=== PATIENT | female | born 1935 | race Two or more races ===

== ENCOUNTER 2016-05-28 20:41 | Inpatient (IN) | payer MEDICARE ==
[~2016-05-28] VITALS: Ht 162.6 cm; Wt 74.4 kg
--- NOTE | 2016-05-28 20:44 | NUR ---
Code Stroke called Addendum: 05/28/16 at [address] Pillai, do not call [facility] due to patient last known well being 1100 this am.
--- NOTE | 2016-05-28 20:44 | NUR ---
PT BIBRA 99 FOR STROKE, LAST KNOWN WELL AT 1100 PER SON, BS ON THE FIELD [address] NOTED. NOTED LEFT FACIAL DROOPING. PT AOX2 WITH SLURRED SPEECH NOTED. PT RR EVEN AND UNLABORED. NO SOB NOTED. NAD NOTED. NO NVD AT THIS TIME. PT NOT DIAPHORETIC. PT GOWNED AND PLACED ON MONITOR WAITING FOR MD CASSIDY.
--- NOTE | 2016-05-28 20:45 | NUR ---
IV STARTED ON RIGHT HAND 20, BLOOD DRAWN AND SENT TO LAB. PER RA PLACED LEFT HAND 20G, INTACT AND PATENT.
--- NOTE | 2016-05-28 20:47 | NUR ---
PT TO CT.
[2016-05-28 20:52] LABS: BASOPHILS % (AUTO) 0.3 % (0.0-2.0); EOSINOPHILS # (AUTO) 0.1 /CMM (0.0-0.7); EOSINOPHILS % (AUTO) 0.8 % (0.0-6.0); HEMATOCRIT 47 % (33-45); HEMOGLOBIN 15.7 g/dL (11.5-14.8); LYMPHOCYTES # (AUTO) 0.7 /CMM (0.8-4.8); MEAN CORPUSCULAR HEMOGLOBIN 32 PG (26.0-33.0); MEAN CORPUSCULAR HGB CONC 33 g/dl (31.0-36.0); MEAN CORPUSCULAR VOLUME 97 fL (82-100); MONOCYTES # (AUTO) 0.5 /CMM (0.1-1.30); MONOCYTES % (AUTO) 4.8 % (2.0-12.0); NEUTROPHILS # (AUTO) 8.8 /CMM (1.8-8.9); NEUTROPHILS % (AUTO) 87.1 % (43.0-81.0); PLATELET COUNT (AUTO) 232 /CMM (150-450); RDW COEFFICIENT OF VARIATION 13.7 (11.5-15.0); RED BLOOD CELL COUNT(AUTO) 4.84 MIL/uL (4.0-5.2); WHITE BLOOD COUNT (AUTO) 10.1 K/uL (4.3-11.0)
--- NOTE | 2016-05-28 21:02 | NUR ---
PT RETURNED FROM CT.
[2016-05-28 21:03] LABS: CALCIUM, SERUM 9.5 mg/dL (8.5-10.1); CARBON DIOXIDE 28 mmol/L (21-32); CHLORIDE 104 mmol/L (98-107); CREATININE 1.1 mg/dL (0.6-1.3); GLUCOSE 183 mg/dL (74-106); POTASSIUM 3.6 mmol/L (3.5-5.1); SODIUM SERUM 140 mmol/L (136-145); UREA NITROGEN, BLOOD 17 mg/dL (7-18)
[2016-05-28 21:08] LABS: ALANINE AMINOTRANSFERASE 12 U/L (12-78); ALBUMIN 3.9 g/dL (3.4-5.0); ALKALINE PHOSPHATASE 83 U/L (46-116); ASPARTATE AMINOTRANSFERASE 23 U/L (15-37); BILIRUBIN,DIRECT 0.1 mg/dL (0.0-0.2); BILIRUBIN,TOTAL 0.6 mg/dL (0.2-1.0); TOTAL PROTEIN, SERUM 8.2 g/dL (6.4-8.2)
[2016-05-28 21:10] LABS: INR 0.97 (0.87-1.13); PROTHROMBIN TIME 10.2 SECS (9.5-12.7)
[2016-05-28 21:11] LABS: TROPONIN I < 0.017 ng/mL (0.00-0.056)
[2016-05-28] MEDS ORDERED: DILTIAZEM HCL 25 MG IV ONE (21:20)
--- NOTE | 2016-05-28 21:29 | NUR ---
DR. PARIS SPEAKING TO SON REGARDING POC.
[2016-05-28] MEDS ORDERED: DILTIAZEM HCL IV 125 MG in IV D5W 100 ML IV ONE (21:30)
[2016-05-28] MEDS ORDERED: NICARDIPINE IN DEXTROSE,ISO-OS 200 ML IV PRN (21:30)
[2016-05-28] MEDS ORDERED: DILTIAZEM HCL 50 MG IV IV ONE (21:30)
--- NOTE | 2016-05-28 21:47 | NUR ---
PER SANTIAGO TO HOLD NICARDAPINE DRIP IF SBP BELOW 160
--- NOTE | 2016-05-28 21:58 | NUR ---
CALLED DR HANKS AND LEFT VOICEMAIL.
[2016-05-28] MEDS ORDERED: LORAZEPAM INJ 2 MG/ML VIAL IV ONE (22:00)
--- NOTE | 2016-05-28 22:09 | NUR ---
F/C PLACED PER STATISTICAL TECHNICIAN MACIEL. URINE COLLECTED.
--- NOTE | 2016-05-28 22:09 | NUR ---
DR. SANDERS AT BEDSIDE FOR EVAL.
[2016-05-28] MEDS ORDERED: ASPIRIN 300 MG/SUPP.RECT RC ONE ×2 (22:10→22:30)
--- NOTE | 2016-05-28 22:15 | NUR ---
PT ASSIGNED TO ICU 257
--- NOTE | 2016-05-28 22:20 | NUR ---
REPORT GIVEN TO INSOLE REINFORCERPRABHU HARTLEY
--- NOTE | 2016-05-28 22:29 | NUR ---
INFORMED DR. SANTIAGO BP 124/70 HR 79, PER MD TO HOLD NICARDAPINE DRIP AT THIS TIME.
[2016-05-28 22:43] LABS: APPEARANCE,URINE CLEAR (CLEAR); BILIRUBIN,URINE NEGATIVE (NEGATIVE); BLOOD, URINE 1+ Ery/uL (NEGATIVE); COLOR,URINE YELLOW (YELLOW); KETONES,URINE NEGATIVE (NEGATIVE); LEUKOCYTE ESTERASE ,URINE NEGATIVE (NEGATIVE); NITRITE, URINE NEGATIVE (NEGATIVE); PROTEIN,URINE 2+ mg/dl (NEGATIVE); UGLUCOSE 1+ mg/dL (NEGATIVE); UROBILINOGEN,URINE 0.2 EU/dL (0.2)
--- NOTE | 2016-05-28 22:50 | NUR ---
PT TRANSFERED PER ACLS PROTOCOL.
[2016-05-28 22:52] LABS: C-REACTIVE PROTEIN 1.1 mg/dL (0.0-0.9); MAGNESIUM 1.9 mg/dL (1.8-2.4); THYROID STIMULATING HORMONE 4.536 uIU/mL (0.358-3.74)
[2016-05-28 22:53] LABS: CANNABINOID, URINE NEGATIVE (NEGATIVE); PHENCYCLIDINE SCREEN,URINE NEGATIVE (NEGATIVE)
[2016-05-28 22:57] LABS: ADD URINE CULTURE NO; BACTERIA,URINE Rare /HPF (None Seen); RBC,URINE 0-2 /HPF (0-2); SQUAMOUS EPITHELIAL CELL,UR Few /HPF (None Seen)
--- NOTE | 2016-05-28 23:00 | NUR ---
ICU/RN RECEIVED PT FROM ER VIA ANIYAH W/ ADMITTING DX OF CVA.PT APHASIC THEN W/IN FEW MIN PT WAS ABLE TO STATE FULL NAME,SLURRED.AGITATED AND FLINGING RT ARM CONTINUOUSLY AND UNABLE TO UNDERSTAND WHY WE HAD TO RESTRAIN HER RT WRIST.
[2016-05-28] MEDS ORDERED: IV SET PRIMARY PUMP SET 1 EA INFUS.SET MC ONE (23:07)
[2016-05-28] MEDS: IV NS 0.9% 1,000 ML IV PRN (23:11)
[2016-05-28 23:14] LABS: CREATINE KINASE MB 2.5 ng/mL (0-3.6)
[2016-05-28 23:17] VITALS: BP 138/120
[2016-05-28] MEDS: BLOOD SUGAR DIAGNOSTIC 1 EACH STRIP IN SCH (23:43)
--- NOTE | 2016-05-28 23:45 | NUR ---
ICU/RN NOTIFIED OF AGITATION,HIGH BP.NO ORDERS GIVEN.
[2016-05-29] VITALS (57 sets, daily range): BP systolic 95–248; BP diastolic 36–138
[2016-05-29] MEDS ORDERED: LORAZEPAM INJ 2 MG/ML VIAL ONE (01:41)
--- NOTE | 2016-05-29 01:45 | NUR ---
ICU/RN. CALL PLACED TO FOR PT'S CONTINUOUS AGITATION RAPID HR A-FIB,HIGH BP. ORDER RECEIVED.GIVEN 0.5MG ATIVAN IVP AT 0148 ORDERED.
[2016-05-29] MEDS: LORAZEPAM INJ 2 MG/ML VIAL IV PRN ×3 (01:48→20:19)
[2016-05-29] MEDS: hydrALAZINE HCL IV 20 MG VIAL ONE ×2 (03:04→03:12)
--- NOTE | 2016-05-29 03:12 | NUR ---
ICU/RN NOTIFIED OF BP 248/120MM/HG.GIVEN 10MG APRESOLINE IVP BY C.N.AT 0316
[2016-05-29] MEDS: hydrALAZINE HCL IV 20 MG VIAL IV PRN ×3 (03:16→21:17)
[2016-05-29] MEDS ORDERED: AMIODARONE 150 MG/3 ML VIAL IV ONE ×2 (03:27→03:28)
[2016-05-29] MEDS ORDERED: IV D5W 100 ML IV ONE (03:29)
[2016-05-29] MEDS ORDERED: IV D5W 500 ML IV ONE (03:29)
[2016-05-29] MEDS ORDERED: IV SET PRIMARY PUMP SET 1 EA INFUS.SET MC ONE (03:30)
--- NOTE | 2016-05-29 03:30 | NUR ---
ICU/RN CALLED AND WROTE ORDER FOR AMIODARONE DRIP FOR AFIB W/ RVR.ORDER CLARIFIED
--- NOTE | 2016-05-29 03:45 | NUR ---
ICU/RN MD NOTIFIED OF UNABLE TO START AMIODARONE DRIP SEC.TO SBP OF 95MMHG AND HR OF60'S AFIB W/CONTROLLED VR.ORDER TO HOLD AMIODARONE FOR NOW.
[2016-05-29] MEDS ORDERED: AMIODARONE 900 MG in IV D5W 482 ML IV PRN (04:00)
[2016-05-29] MEDS ORDERED: AMIODARONE 150 MG in IV D5W 100 ML IV ONE (04:00)
[2016-05-29 04:57] LABS: BASOPHILS % (AUTO) 0.1 % (0.0-2.0); HEMATOCRIT 48 % (33-45); HEMOGLOBIN 15.8 g/dL (11.5-14.8); LYMPHOCYTES # (AUTO) 0.6 /CMM (0.8-4.8); LYMPHOCYTES % (AUTO) 3.9 % (20.0-44.0); MEAN CORPUSCULAR HEMOGLOBIN 32 PG (26.0-33.0); MEAN CORPUSCULAR HGB CONC 33 g/dl (31.0-36.0); MEAN CORPUSCULAR VOLUME 97 fL (82-100); MONOCYTES # (AUTO) 0.4 /CMM (0.1-1.30); MONOCYTES % (AUTO) 2.6 % (2.0-12.0); NEUTROPHILS # (AUTO) 13.8 /CMM (1.8-8.9); NEUTROPHILS % (AUTO) 93.4 % (43.0-81.0); PLATELET COUNT (AUTO) 282 /CMM (150-450); RDW COEFFICIENT OF VARIATION 14.5 (11.5-15.0); RED BLOOD CELL COUNT(AUTO) 4.94 MIL/uL (4.0-5.2); WHITE BLOOD COUNT (AUTO) 14.8 K/uL (4.3-11.0)
--- NOTE | 2016-05-29 05:00 | NUR ---
ICU/RN REMAINS IN CONTROLLED A-FIB.W/ SBP OF 164MMHG.PT LESS RESTLESS.REMAINS W/ SLURRED SPEECH-AND INCOMPREHENSIBLE.FAMILY AT BEDSIDE.
[2016-05-29 05:04] LABS: CALCIUM, SERUM 9.3 mg/dL (8.5-10.1); CREATININE 1.2 mg/dL (0.6-1.3); POTASSIUM 3.7 mmol/L (3.5-5.1)
[2016-05-29 05:18] LABS: INR 0.98 (0.87-1.13); PROTHROMBIN TIME 10.6 SECS (9.5-12.7)
[2016-05-29] MEDS: BLOOD SUGAR DIAGNOSTIC 1 EACH STRIP IN SCH ×3 (05:26→18:49)
[2016-05-29] MEDS ORDERED: BLOOD SUGAR DIAGNOSTIC 1 EACH STRIP IN SCH (07:30)
[2016-05-29] MEDS ORDERED: PANTOPRAZOLE 40 MG TABLET.DR PO SCH (07:30)
--- NOTE | 2016-05-29 07:30 | NUR ---
ICU/RN REPORT AND CARE OF PT GIVEN TO NATALIE PELLETIER.REMAINS IN CONTROLLED A-FIB,RESTLESS AT TIMES BUT MORE SUBDUED.
--- NOTE | 2016-05-29 07:50 | NUR ---
SEAFOOD FARMER: pt.is s/p CVA, agitating, restless, L/site weakness, R.Arm wrist restraint, uncontrolled R.arm/leg activity, grimacing occas., unable to follow any commands, Afib HR 80-100/controlled, SBP up to 200 episodes, has BP meds prn, O2 sat. WNL, NPO status
--- NOTE | 2016-05-29 08:40 | NUR ---
LAUNDRY TECHNICIAN: updated with pt.current/neuro status, agitating, restraint, out off control/contact episodes, VS, SBP up to 216, Afib controlled now, NPO/unable to give PO meds, I/O, IVF, see new orders
[2016-05-29] MEDS: ASPIRIN EC 325 MG TABLET.DR PO SCH (09:00)
[2016-05-29] MEDS: DOCUSATE SODIUM 100 MG CAPSULE PO SCH (09:00)
--- NOTE | 2016-05-29 09:20 | NUR ---
SYNCHRONOUS MOTOR ASSEMBLER: pt.is agitated with uncontrolled R.arm, leg activity, Ativan 0.5 mg IV given
[2016-05-29] MEDS: PANTOPRAZOLE 40 MG VIAL IV SCH (09:49)
--- NOTE | 2016-05-29 10:00 | NUR ---
DEDICATED OWNER OPERATOR: pt.got MRI stat order, updated with pt.restless, agitating status, said: give one more 0.5 mg IV dose before MRI, pt.family is in room, discussed re: pt.current status, orders, VS, POC
--- NOTE | 2016-05-29 10:06 | NUR ---
MRI ORDERED, SPOKE TO NURSE NATALIE .PATIENT IS COMBATIVE AND MOVING ALOT.NATALIE NEEDS TO CALL DR. HANKS FOR SEDATION ORDERS IN THE MEANTIME I TOLD ANA LUISA THE COLLECTIONS PROFESSIONAL TO CALL NATALIE'S AN COORDINATE.
--- NOTE | 2016-05-29 11:10 | NUR ---
BISQUE BRUSHER: was notified re: 100% no blood flow in R.carotid artery
[2016-05-29] MEDS ORDERED: LORAZEPAM INJ 2 MG/ML VIAL IV ONE (11:15)
--- NOTE | 2016-05-29 12:00 | NUR ---
CARBURETOR MECHANIC: Ativan 0.5mg IV x1 dose was given before MRI, but pt started to be extremely agitated/head, r.arm activity into MRI tube with noisy sound, histology technologist is going notify , pt.family is aware
[2016-05-29] MEDS: IV NS 0.9% 1,000 ML IV PRN (13:42)
--- NOTE | 2016-05-29 17:30 | NUR ---
BORING MACHINE SET UP OPERATOR JIG: pt. is rest now, but still needs restraint protective measures, no grimacing, same neuro status, unable to follow commands/out off any contact/tracking, still R/arm,leg strong activity+, L/arm,leg very weak activity, Afib controlled, SBP 110-150 now, O2 sat. WNL, PM care done, skin is intact, BS 148, family at BS, updated with POC
[2016-05-29] MEDS: ATORVASTATIN 40 MG TABLET PO SCH (21:55)
[2016-05-29] MEDS: ACETAMINOPHEN 325 MG TABLET PO SCH (21:55)
[2016-05-29] MEDS ORDERED: SIMVASTATIN 20 MG TABLET PO SCH (22:00)
[2016-05-30] VITALS (29 sets, daily range): BP systolic 134–194; BP diastolic 65–131
[2016-05-30] MEDS: LORAZEPAM INJ 2 MG/ML VIAL IV PRN ×3 (02:51→23:43)
[2016-05-30] MEDS: IV NS 0.9% 1,000 ML IV PRN (03:26)
[2016-05-30] MEDS: hydrALAZINE HCL IV 20 MG VIAL IV PRN (03:47)
[2016-05-30 05:17] LABS: CALCIUM, SERUM 8.6 mg/dL (8.5-10.1); POTASSIUM 3.3 mmol/L (3.5-5.1)
[2016-05-30 05:18] LABS: BASOPHILS % (AUTO) 0.2 % (0.0-2.0); EOSINOPHILS % (AUTO) 0.2 % (0.0-6.0); HEMATOCRIT 46 % (33-45); HEMOGLOBIN 15.1 g/dL (11.5-14.8); LYMPHOCYTES % (AUTO) 6.3 % (20.0-44.0); MEAN CORPUSCULAR HEMOGLOBIN 32 PG (26.0-33.0); MEAN CORPUSCULAR HGB CONC 33 g/dl (31.0-36.0); MEAN CORPUSCULAR VOLUME 98 fL (82-100); MONOCYTES # (AUTO) 1.1 /CMM (0.1-1.30); MONOCYTES % (AUTO) 6.7 % (2.0-12.0); NEUTROPHILS # (AUTO) 13.6 /CMM (1.8-8.9); NEUTROPHILS % (AUTO) 86.6 % (43.0-81.0); PLATELET COUNT (AUTO) 225 /CMM (150-450); RDW COEFFICIENT OF VARIATION 15.2 (11.5-15.0); RED BLOOD CELL COUNT(AUTO) 4.67 MIL/uL (4.0-5.2); WHITE BLOOD COUNT (AUTO) 15.7 K/uL (4.3-11.0)
[2016-05-30] MEDS: BLOOD SUGAR DIAGNOSTIC 1 EACH STRIP IN SCH ×5 (06:00→23:33)
--- NOTE | 2016-05-30 06:45 | NUR ---
ELECTRICAL INSTALLATION SUPERVISOR - PT.IS IN RT.SOFT WRIST RESTRAINT DUE TO SEVERE RESTLESSNESS ON RT.SIDE OF BODY. + LEFT CVA. DR. LANG AT TALKING TO SON & . NO SURGICAL INTERVENTION AT PRESENT TIME PER VERBALIZATION . DR. LANG EXPLAINED IN DEPTH DETAIL THAT CVA WAS CAUSED BY PT'S ATRIAL FIBRILLATION. HR/80'S TO LOW 100'S/AFIB CONT. SBP'S WERE VERY LABILE LAST NIGHT. HYDRALAZINE 10MG-SLOW IV PUSH WAS ADM.X2 LAST NIGHT. ATIVAN 0.5MG IVP WAS ADM. Q 6 HRS/X 2 ADM. FOR RESTLESSNESS. PT. IS NPO. MRI COULD NOT BE DONE YESTERDAY, WILL ATTEMPT TODAY. ENDORSED TO CAROLINE PELLETIER/DAYSWENDY. PT.REMAINS ON O2/3L/NC. AFEBRILE. YEN CATH TO GRAVITY. MIN. UOP. CONT. POC.
--- NOTE | 2016-05-30 07:30 | NUR ---
ICU/RN: PT RECEIVED, LETHARGIC, DIFFICULT TO AROUSE, MOVES TO LOCALIZED PAIN, ON O2 3L/MIN VIA NC, BREATHING EVEN AND UNLABORED. A-FIB 90-120'S; FLUCTUATES WITH PT'S PERIODS OF AGITATION, + REFLEXES, STRENGTH ON R UPPER AND LOWER EXT, PT ATTEMPTS TO SWING EXTREMITIES OVER SIDE RAILS. R SOFT WRIST RESTRAINT PLACED FOR SAFETY, PT ATTEMPTS TO PULL LINES. BED ALARM ON, SAFETY MEASURES IN PLACE. WILL CONT TO MONITOR PT
[2016-05-30] MEDS: DOCUSATE SODIUM 100 MG CAPSULE PO SCH (08:05)
[2016-05-30] MEDS: ASPIRIN EC 325 MG TABLET.DR PO SCH (08:06)
[2016-05-30] MEDS: PANTOPRAZOLE 40 MG VIAL IV SCH (08:18)
[2016-05-30] MEDS ORDERED: IV SET PRIMARY PUMP SET 1 EA INFUS.SET MC ONE (09:55)
[2016-05-30] MEDS: Potassium Chloride 20 MEQ in IV NS 0.9% 1,000 ML IV PRN (09:58)
[2016-05-30] MEDS: diphenhydrAMINE HCL 50 MG/ML VIAL IV PRN (14:27)
[2016-05-30] MEDS ORDERED: IV NS 0.9% 250 ML IV ONE (14:57)
[2016-05-30] MEDS ORDERED: CT SWABBABLE VALVE TRANS SET 1 EA INFUS.SET MC ONE (14:57)
[2016-05-30] MEDS ORDERED: IOHEXOL-350 100 ML VIAL IV ONE (14:57)
[2016-05-30] MEDS ORDERED: OLANZAPINE 10 MG VIAL IM ONE (15:00)
--- NOTE | 2016-05-30 15:30 | NUR ---
ICU/RN: PT TRANSPORTED TO MRI VIA ACLS PROTOCOL. WILL HAVE CTA AFTER MRI. PT SEDATED, BREATHING EVEN AND UNLABORED.
--- NOTE | 2016-05-30 15:41 | NUR ---
MRI scan will be done before CT scan.
--- NOTE | 2016-05-30 17:55 | NUR ---
ICU/RN: PT RETURN TO ICU IN STABLE CONDITION, NO DISTRESS NOTED. BED BATH RENDERED. RESTRAINTS PLACED. WILL CONT TO MONITOR PT.
--- NOTE | 2016-05-30 19:10 | NUR ---
ICU/RN: PT IN BED, SBP WITHIN PARAMETERS 140-200MM/HG. ON O2 3L/MIN VIA NC SAT 95% WITH PERIODS OF APNEA. NO DISTRESS NOTED. CARE ENDORSED TO PM RN FOR GONZALEZ.
--- NOTE | 2016-05-30 19:54 | NUR ---
HONEY LIQUEFIER. INITIAL ASSESSMENT. RECEIVED THE PT REST ON THE BED. SLEEPING. LETHARGIC. RESPONDING PAIN. HOB ELEVATED. OXYGEN 3L NASAL CANNULA. SAT 96 %. RT HAND SOFT WRIST RESTRAINT. CHECKED AND RELEASED. NO INJURY OR REDNESS NOTED. FC PATENT. IV LT HAND 18G. IVF NS WITH 20 MEQ POTASSIUM 75ML/H. TURN AND REPOSITION Q2H. REMNANT SORTER SHOWING AFIB RATE IS 116. WILL COPNTINUE TO MONITOR VITALS.
[2016-05-30] MEDS: ATORVASTATIN 40 MG TABLET PO SCH (22:00)
[2016-05-30] MEDS: ACETAMINOPHEN 325 MG TABLET PO SCH (22:00)
--- NOTE | 2016-05-30 22:27 | NUR ---
SHEEP HERDER. TYLENOL AND LIPITOR NOT GIVEN. PT IS NPO.
[2016-05-31] VITALS (32 sets, daily range): BP systolic 69–221; BP diastolic 28–153
[2016-05-31] MEDS: Potassium Chloride 20 MEQ in IV NS 0.9% 1,000 ML IV PRN ×2 (01:36→15:28)
--- NOTE | 2016-05-31 02:47 | NUR ---
WILDLIFE CONTROL AGENT. TRANSFER THE PT TO ROOM 112 BED 2. AMYELIN .REPORT GIVEN TO TAMMIE PELLETIER.
--- NOTE | 2016-05-31 03:00 | NUR ---
MAYELIN RN NOTES RECEIVED PT FROM ICU. ON O2 VIA NC AT 3LPM, THEA WELL. TELE READS UNCONTROLLED AFIB AT 121 BPM. RIGHT WRIST RESTRAINT. YEN CATH IN PLACE. LAC 18G IV AND L HAND 20G. LEFT HAND IV REMOVED DUE TO LEAKAGE. RUNNING NS + 20 MEQS KCL AT 75 ML/HR. VERBALLY NON RESPONSIVE, WITHDRAWS TO PAIN. SIDE RAILS X3. HOB ELEVATED. PT DEEP SUCTIONED BY RT WITH MINIMAL BLOOD TINGED SECRETIONS.
[2016-05-31] MEDS: BLOOD SUGAR DIAGNOSTIC 1 EACH STRIP IN SCH ×3 (06:24→18:27)
--- NOTE | 2016-05-31 07:05 | NUR ---
RN INITIAL NOTES RECEIVED PT IN BED, NON RESPONSIVE TO NAME, REACTIVE TO PAIN STIMULI, PT IS ON 3L NC, SATING WELL, NO S/S OF SOB OR RESP. DISTRESS NOTED AT THIS TIME, PT IS ON TELE MONITOR SHOWING UNCONTROLLED A FIB @ 120 BPM, NO C/O OF DISCOMFORT OR PAIN AT THIS TIME, PT IS NOTED WITH SKIN ISSUES, PT IS CURRENTLY NPO D/T MENTAL STATUS, PT HAS F/C DRAINING WELL, PT IS LAC #18G, RUNNING NS + K 20MEQ @ 75ML/HR, C/D/I/PATENT, FLUSHING, NO S/S OF INFECTION/ INFILTRATION NOTED AT THIS TIME, PT HAS RIGHT HAND RESTRAINT, RELEASED AND SKIN CHECK COMPLETED, ALL SAFETY MEASURES IN PLACE AT ALL TIMES, CALL LIGHT WITHIN EASY REACH, WILL MONITOR PT CLOSELY FOR CHANGES
[2016-05-31] MEDS: ASPIRIN EC 325 MG TABLET.DR PO SCH (08:05)
[2016-05-31] MEDS: DOCUSATE SODIUM 100 MG CAPSULE PO SCH (08:05)
[2016-05-31 08:26] LABS: BASOPHILS % (AUTO) 0.3 % (0.0-2.0); EOSINOPHILS % (AUTO) 0.4 % (0.0-6.0); HEMATOCRIT 43 % (33-45); HEMOGLOBIN 14.6 g/dL (11.5-14.8); LYMPHOCYTES # (AUTO) 1.2 /CMM (0.8-4.8); LYMPHOCYTES % (AUTO) 8.9 % (20.0-44.0); MEAN CORPUSCULAR HEMOGLOBIN 33 PG (26.0-33.0); MEAN CORPUSCULAR HGB CONC 34 g/dl (31.0-36.0); MEAN CORPUSCULAR VOLUME 97 fL (82-100); MONOCYTES # (AUTO) 1.1 /CMM (0.1-1.30); MONOCYTES % (AUTO) 8.5 % (2.0-12.0); NEUTROPHILS # (AUTO) 10.7 /CMM (1.8-8.9); NEUTROPHILS % (AUTO) 81.9 % (43.0-81.0); PLATELET COUNT (AUTO) 216 /CMM (150-450); RDW COEFFICIENT OF VARIATION 15.2 (11.5-15.0); RED BLOOD CELL COUNT(AUTO) 4.41 MIL/uL (4.0-5.2); WHITE BLOOD COUNT (AUTO) 13.1 K/uL (4.3-11.0)
[2016-05-31] MEDS: PANTOPRAZOLE 40 MG VIAL IV SCH (09:03)
[2016-05-31 09:05] LABS: ABG OXYGEN SATURATION 96.2 % (92.0-98.5); ABG PCO2 40.9 mmHg (35.0-45.0); ABG PH 7.429 (7.350-7.450); ABG PO2 83.4 mmHg (75.0-100.0); ABG TOTAL HEMOGLOBIN 14.6 G/dL (12.0-16.0); AaDO2 82.4 mmHg; COHb 0.9 % (0.5-1.5); MetHb 0.7 % (0.0-1.5); O2Hb 94.7 % (94.0-97.0); SITE, ABG Left Radial; VENT MODE, BG NASAL CANNULA
--- NOTE | 2016-05-31 09:40 | NUR ---
GREENS TIER NOTES RECEIVED ORDERS FOR PT TO BE TRANSFERRED TO ICU, REPORT GIVEN TO YUSUF AT BEDSIDE,FAMILY NOTIFIED AND AT BEDSIDE, ALL BELONGINGS AND RX WITH PT, PT WAS TAKEN BY CERTIFIED OPHTHALMIC TECHNOLOGIST AND SOUR BLEACHING PLEATER VIA ACLS PROTOCOL. PT STABLE DURING TRANSFER.
[2016-05-31] MEDS ORDERED: NITROGLYCERIN 30 GM TUBE TP SCH (10:00)
--- NOTE | 2016-05-31 11:03 | NUR ---
IN STORE MARKETING ASSOCIATE NOTE Dr. Wil HERRING at bedside for intubation, verbalized order for Etomidate 20 and Succ 120, given IVP. MD noted with blockage on the airway from glidescope, reported to Dr. Hardin.
[2016-05-31] MEDS ORDERED: IV SET PRIMARY PUMP SET 1 EA INFUS.SET MC ONE (11:13)
[2016-05-31] MEDS: PROPOFOL 100 ML IV PRN ×2 (12:18→20:14)
--- NOTE | 2016-05-31 14:35 | NUR ---
BARK PRESS OPERATOR NOTE 1000: Received patient from MAYELIN, 81 y/o female, moves right side of her body a lot, with right SW restraints on. On 3LPM of O2 via NC. Unable to follow commands due to CVA. Noted with stridor and increased work of breathing, O2 sat 99%. With LAC PIV intact, on IVF with KCl. A fib 90's controlled on the monitor at this time. Wells cath intact, noted with minimal ras colored urine. 1030: S/E by Dr. Santos, spoke with family at bedside, and with order to intubate patient, family at bedside agreed and aware for the procedure, risks and benefits. 1105: Dr. Hardin S/E patient and agreed for intubation, MD spoke with patient's and son and discussed re: the POC. Dr. De La Torre, ER MD successfully intubated patient. Placed left NGT for feeding/medication access. 1130: PICC nurse at bedside for midline insertion, family aware for the procedure and agreed. 1200: S/E by Dr. Yepez and spoke with family at bedside. MD agreed for Diprivan for sedation but DC Nitro ointment and said patient is ok for SBP 170's for organs perfusion. Removed Nitro patch as ordered. With MARTINEZ midline in place. Advanced left NGT for 5cm more per XCR. 1400: Family thinking about taking off the ETT after talking to Dr. Yepez, still waiting for final decision. Keeping patient Full code at this time, until family decides. All of family's questions and concerns were answered.
--- NOTE | 2016-05-31 18:35 | NUR ---
COMPUTATIONAL PHYSICIST NOTE No any significant changes noted at this time. Other VSS, aside from BP at this time 186/115. Continue monitoring, kept HOB low for organ perfusion. ETT to vent, tolerated AC mode at this time. No S/S discomfort. Sedated on 20 mcg of Diprivan. With right SW restraints for episodes of moving her right hand. Wells cath, noted 600mL ras colored urine for the shift. Left NGT intact. BS 116. Rendered frequent neurocheck. Kept clean, warm and dry. Afib 100's on the monitor.
[2016-05-31] MEDS: ATORVASTATIN 40 MG TABLET PO SCH (21:17)
[2016-05-31] MEDS: ACETAMINOPHEN 325 MG TABLET PO SCH (21:17)
[2016-05-31] MEDS: diphenhydrAMINE HCL 50 MG/ML VIAL IV PRN (21:18)
[2016-05-31] MEDS ORDERED: SUCCINYLCHOLINE CHLORIDE 20 MG/ML VIAL ONE (21:20)
[2016-05-31] MEDS ORDERED: ETOMIDATE 2 MG/ML VIAL ONE (21:20)
[2016-06-01] VITALS (35 sets, daily range): BP systolic 82–177; BP diastolic 45–109
[2016-06-01] MEDS: BLOOD SUGAR DIAGNOSTIC 1 EACH STRIP IN SCH ×5 (00:38→23:35)
[2016-06-01] MEDS ORDERED: IV SET PRIMARY PUMP SET 1 EA INFUS.SET MC ONE ×3 (02:35→19:36)
[2016-06-01] MEDS: PROPOFOL 100 ML IV PRN ×2 (03:05→16:55)
[2016-06-01] MEDS: Potassium Chloride 20 MEQ in IV NS 0.9% 1,000 ML IV PRN ×2 (03:07→16:55)
--- NOTE | 2016-06-01 04:35 | NUR ---
DRILLING MACHINE OPERATOR PT REMAINS INTUBATED. VENTILATOR AC MODE. TOLERATES WELL. SEDATED WITH PROPOFOL DRIP. BILATERAL SCATTERED RHONCHI. VITAL SIGNS STABLE, AFEBRILE, SCOPE -A.FIB. MOVES RIGHT ARM & LEG, LEFT SIDE WEAKNESS. NEURO CHECK Q 2 HOURS. NGT CLAMPED. MIDLINE ON RIGHT UPPER ARM. F/C DRAINS SUFFICIENT AMT. OF CLEAR URINE. WILL FOLLOW CLOSE MONITORING.
[2016-06-01 05:21] LABS: BASOPHILS % (AUTO) 0.3 % (0.0-2.0); EOSINOPHILS # (AUTO) 0.2 /CMM (0.0-0.7); EOSINOPHILS % (AUTO) 2.3 % (0.0-6.0); HEMATOCRIT 37 % (33-45); HEMOGLOBIN 12.5 g/dL (11.5-14.8); LYMPHOCYTES % (AUTO) 12.3 % (20.0-44.0); MEAN CORPUSCULAR HEMOGLOBIN 33 PG (26.0-33.0); MEAN CORPUSCULAR HGB CONC 34 g/dl (31.0-36.0); MEAN CORPUSCULAR VOLUME 97 fL (82-100); MONOCYTES # (AUTO) 0.8 /CMM (0.1-1.30); MONOCYTES % (AUTO) 9.3 % (2.0-12.0); NEUTROPHILS # (AUTO) 6.3 /CMM (1.8-8.9); NEUTROPHILS % (AUTO) 75.8 % (43.0-81.0); PLATELET COUNT (AUTO) 140 /CMM (150-450); RDW COEFFICIENT OF VARIATION 14.5 (11.5-15.0); RED BLOOD CELL COUNT(AUTO) 3.78 MIL/uL (4.0-5.2); WHITE BLOOD COUNT (AUTO) 8.4 K/uL (4.3-11.0)
[2016-06-01 05:49] LABS: CALCIUM, SERUM 8.4 mg/dL (8.5-10.1); CREATININE 1.2 mg/dL (0.6-1.3); MAGNESIUM 1.8 mg/dL (1.8-2.4); PHOSPHORUS 2.6 mg/dL (2.5-4.9); POTASSIUM 3.9 mmol/L (3.5-5.1)
--- NOTE | 2016-06-01 07:15 | NUR ---
CAKE PRESS OPERATOR NOTES RECEIVED PATIENT SEDATED , RESPONSIVE TO DEEP PAIN STIMULI , NOTED WITH LEFT SIDED WEAKNESS , RIGHT LOWER AND UPPER EXTREMELY WNL , NOT IN ACUTE DISTRESS , RESPIRATIONS EVEN AND UNLABORED , SPO2 OF 100% VIA MECHANICAL VENTILATOR SETTINGS ORDERED , ETT 7.06/[address] , AFIB 85 CONTROLLED ON BEDSIDE MONITOR , NGT @ LEFT NARE IN PLACE , AUSCULTATED FOR PLACEMENT NOTED WITH GURGLING SOUND , FC DRAINING VIA GRAVITY WITH ERASMO COLORED URINE , R WRIST RESTRAINTS IN PLACE , VISUAL CHECK PER PROTOCOL , IV OF L AC # 18 PATENT AND INTACT , MARTINEZ MIDLINE PATENT AND INTACT WITH NA KCL 20MEQ @ 75 ML / HR INFUSING WELL , ALL NEEDS ATTENDED , BED ON LOW AND LOCKED POSITION , SIDE RAILS X2 , CALL LIGHT WITHIN REACH , HOB @ 35 , WILL CONTINUE TO MONITOR
--- NOTE | 2016-06-01 08:30 | NUR ---
HAT BRIM CURLER NOTES PT ON SEDATION VACATION , PROPOFOL HELD , WILL CONTINUE TO MONITOR
[2016-06-01 08:31] LABS: ABG BASE EXCESS 0.6 mmol/L; ABG OXYGEN SATURATION 98.5 % (92.0-98.5); ABG PCO2 34.8 mmHg (35.0-45.0); ABG PH 7.457 (7.350-7.450); ABG PO2 154.8 mmHg (75.0-100.0); ABG TOTAL HEMOGLOBIN 13.6 G/dL (12.0-16.0); AaDO2 90.4 mmHg; COHb 0.8 % (0.5-1.5); MetHb 0.8 % (0.0-1.5); O2Hb 96.9 % (94.0-97.0); PEEP,BG 5 cm H2O; SITE, ABG Right Brachial; VT, ABG 500 mL
[2016-06-01] MEDS: ASPIRIN EC 325 MG TABLET.DR PO SCH (08:41)
[2016-06-01] MEDS: DOCUSATE SODIUM 100 MG CAPSULE PO SCH (08:41)
[2016-06-01] MEDS: PANTOPRAZOLE 40 MG VIAL IV SCH (08:42)
--- NOTE | 2016-06-01 08:45 | NUR ---
CYBER SPECIAL AGENT NOTES SEEN AND EVALUATED BY DR DUMONT , NOTIFIED PT IS AFEBRILE , TOLERATING CURRENT VENT SETTINGS WITH SPO2 OF 100% WHILE ON SEDATION VACATION , RESPONSIVE TO DEEP PAIN STIMULI , PER MD KEEP PT OFF SEDATION , TIDAL VOLUME TITRATED DOWN TO 450 , AND HE WILL ORDER ATIVAN PRN .
--- NOTE | 2016-06-01 08:59 | NUR ---
RT POST ABG RESULTS SHOWN TO DR. DUMONT. DECREASED VT TO 450. RN NOTIFIED AND AWARE. NO SOB NOTED AT THIS TIME. WILL CONTINUE TO MONITOR THE PATIENT FOR ANY CHANGES. Addendum: 06/01/16 at 0859 by ROSANA SOLIS RT Amended: Links added.
[2016-06-01] MEDS: LORAZEPAM INJ 2 MG/ML VIAL IVP PRN ×2 (09:37→12:17)
[2016-06-01] MEDS: hydrALAZINE HCL IV 20 MG VIAL IV PRN (11:03)
--- NOTE | 2016-06-01 12:15 | NUR ---
BROOMCORN SORTER NOTES DR MANRIQUE AT BEDSIDE , NOTIFIED [place] HISTORY PROFESSOR STUDENT REGARDING PT CONDITION WITH LEFT SIDED WEAKNESS , RESPONSIVE TO DEEP PAIN STIMULI , , SBP OF 140'S -160'S , OFF SEDATION , TOLERATING CURRENT VENT SETTINGS WITH SPO2 OF 100% , BS OF 116 , PER MD START PT ON TUBE FEEDING , ORDERS CARRIED OUT
--- NOTE | 2016-06-01 12:30 | NUR ---
RESIDENTIAL DIRECT SUPPORT PROFESSIONAL NOTES\ DR HANKS AT BEDSIDE EVALUATING THE PT , NOTIFIED PT IS OFF SEDATION , ON ATIVAN 1MG Q1 PRN , BP 120-150'S , NOTED WITH LEFT SIDED WEAKNESS , RESPONSIVE TO DEEP PAIN STIMULI , ST 150'S NOTED PT IS UNCOMFORTABLE , VENTILATOR ALARMING , ATIVAN 1MG GIVEN PER DR HANKS RE START DIPRIVAN ORDERED .
--- NOTE | 2016-06-01 15:53 | NUR ---
CLUTCH SPECIALIST NOTES [facility] MATTRESS AND DVT PUMPS PLACED , WILL CONTINUE TO MONITOR
--- NOTE | 2016-06-01 17:20 | NUR ---
DIRECTOR LOAN NOTES NOTIFIED DR MANRIQUE THAT THERE IS NO DIETITIAN TODAY , VERIFIED IF HE WANTS TO START NGT FEEDING FOR THE PT , BS OF 94 , NO S/S OF HYPOGLYCEMIA , AWAITING FOR CALL BACK
--- NOTE | 2016-06-01 17:32 | NUR ---
RT PT RECEIVED ORALLY INTUBATED WITH 7.5 ETT SECURED AT 23CM AT THE LIP. OUTSOLE COMPRESSOR DONE. RESPIRATIONS EVEN AND UNLABORED. SUCTIONED SMALL AMOUNTS OF THICK, WHITE SECRETIONS. VENT PLUGGED INTO RED OUTLET. NO RESPIRATORY DISTRESS NOTED AT THIS TIME. VENT ALARMS ON AND WORKING PROPERLY. AMBU BAG AT BEDSIDE. WILL CONTINUE TO MONITOR THE PATIENT CLOSELY FOR ANY CHANGES. Addendum: 06/01/16 at 1736 by ROSANA SOLIS RT Amended: Links added.
--- NOTE | 2016-06-01 20:00 | NUR ---
RECEIVED PATIENT ON DIPRIVAN DRIP AT 10 MCG/KG/MIN.PATIENT AGITATED KICKING WITH RIGHT LEG AND BP ELEVATED.DIPRIVAN DRIP TITRATED TO SEDATION.INTUBATED TO VENT AND MAINTAINED ON SAME SETTINGS. WELL TOLERATED SPO2 99%.SUCTIONED SMALL AMOUNT THICK MC[place]AN SECRETION ORALLY.ORAL CARE DONE.AFIB CONTROLLED.LEFT NARES NGT CLAMPED AND PLACEMENT VERIFIED.NPO STATUS.IVF INFUSING VIA MARTINEZ MIDLINE. SITE INTACT.FC DRAINING VIA GRAVITY DRAINING ERASMO URINE.TURNED AND REPOSITIONED TO COMFORT. NO ACUTE DISTRESS NOTED.
[2016-06-01] MEDS: ATORVASTATIN 40 MG TABLET PO SCH (21:29)
[2016-06-01] MEDS: ACETAMINOPHEN 325 MG TABLET PO SCH (21:30)
[2016-06-02] VITALS (37 sets, daily range): BP systolic 112–197; BP diastolic 54–106
[2016-06-02] MEDS: PROPOFOL 100 ML IV PRN ×3 (04:32→18:35)
[2016-06-02] MEDS: Potassium Chloride 20 MEQ in IV NS 0.9% 1,000 ML IV PRN (04:32)
[2016-06-02] MEDS: BLOOD SUGAR DIAGNOSTIC 1 EACH STRIP IN SCH ×3 (05:34→17:29)
--- NOTE | 2016-06-02 06:32 | NUR ---
NO SIGNIFICANT CHANGE TO PATIENT STATUS.VS STABLE .REMAINS NPO.NGT CLAMED.AFIB CONTROLLED. BLOOD SUGAR MONITORED Q 6 HRS BS WNL.IVF INFUSING WELL.DIPRIVAN DRIP INFUSING AT 20 MCG. ALL NEEDS ANTICIPATED AND MET.
--- NOTE | 2016-06-02 07:19 | NUR ---
POLICE DETENTION ATTENDANT NOTES RECEIVED PATIENT SEDATED , RESPONSIVE TO DEEP PAIN STIMULI OPENS EYES DOESN'T TRACK , NOTED WITH LEFT SIDED WEAKNESS , RIGHT LOWER AND UPPER EXTREMELY WNL , NOT IN ACUTE DISTRESS , RESPIRATIONS EVEN AND UNLABORED , SPO2 OF 100% VIA MECHANICAL VENTILATOR SETTINGS ORDERED , ETT 7.06/[address] , AFIB 75 CONTROLLED VIA BEDSIDE MONITOR , NGT @ LEFT NARE IN PLACE , AUSCULTATED FOR PLACEMENT NOTED WITH GURGLING SOUND , FC DRAINING VIA GRAVITY WITH ERASMO COLORED URINE , R WRIST RESTRAINTS IN PLACE , VISUAL CHECK PER PROTOCOL , IV OF L AC # 18 PATENT AND INTACT , MARTINEZ MIDLINE PATENT AND INTACT WITH PROPOFOL @ 20MCG/MIN , ALL NEEDS ATTENDED , BED ON LOW AND LOCKED POSITION , SIDE RAILS X2 , CALL LIGHT WITHIN REACH , HOB @ 35 , WILL CONTINUE TO MONITOR .
[2016-06-02] MEDS: DOCUSATE SODIUM 100 MG CAPSULE PO SCH (08:00)
[2016-06-02] MEDS: ASPIRIN EC 325 MG TABLET.DR PO SCH (08:00)
[2016-06-02] MEDS: PANTOPRAZOLE 40 MG VIAL IV SCH (08:00)
--- NOTE | 2016-06-02 09:16 | NUR ---
FELT PULLER NOTES 0800 , PT ON SEDATION VACATION , WILL CONTINUE TO MONITOR 09 DR DUMONT AT BEDSIDE DISCUSSING PLAN OF CARE TO THE FAMILY , NOTIFIED CHEST XRAY RESULT , CURRENTLY OFF SEDATION , TOLERATING CURRENT VENTILATOR SETTINGS WITH SPO2 OF 100% , NO S/S OF DISTRESS WHILE OFF SEDATION , MD AWARE
--- NOTE | 2016-06-02 11:12 | NUR ---
LEHR LOADER NOTES DIETITIAN EUVGENIA AT BEDSIDE , RECOMMENDING FIBERSOURCE @ 50ML/HR , ORDER CARRIED OUT
[2016-06-02] MEDS ORDERED: FIBERSOURCE HN 1,000 ML BOTTLE GT PRN (11:30)
[2016-06-02] MEDS ORDERED: Z GUARD REMEDY 2 OZ OINT TP PRN (13:00)
--- NOTE | 2016-06-02 13:00 | NUR ---
TRANSPORT AIDE NOTES 1230 DR MANRIQUE AT BEDSIDE , NOTIFIED PT LABS AND PT CONDITION , MD DISCUSSING PLAN OF CARE TO THE FAMILY , 1240 DR HANKS AT BEDSIDE , NOTIFIED PT ON DIPRIVAN 20MCG/MIN WITH LEFT SIDED WEAKNESS , , MD DISCUSSING PLAN OF CARE
--- NOTE | 2016-06-02 14:00 | NUR ---
FUNERAL CAR DRIVER NOTES NGT FEEDING STARED , NGT PLACEMENT CHECK VIA AUSCULTATION NOTED WITH GURGLING SOUND AT STOMACH AREA , HOB @ 35 DEGREES FOR ASPIRATION PRECAUTION , WILL CONTINUE TO MONITOR
[2016-06-02] MEDS ORDERED: IV SET PRIMARY PUMP SET 1 EA INFUS.SET MC ONE ×2 (14:06→21:38)
--- NOTE | 2016-06-02 15:00 | NUR ---
RIVERBOAT MASTER NOTES CALLED XRAY DEPARTMENT , NOTIFIED THAT CHEST XRAY FOR TODAY DOESN'T SPECIFY THE LOCATION OF NG TUBE , PER POLITICAL SCIENCE CHAIR THEY WILL DO ADDENDUM ,
--- NOTE | 2016-06-02 19:30 | NUR ---
TRAIN CLERK: RECEIVED PT ORALLY INTUBATED AND TOLERATING VENT SETTINGS ORDERED. NO ACUTE DISTRESS, NO EVIDENCE OF DISCOMFORT. CONTINUE ON DIPRIVAN AT 20MCG/KG/MIN FOR SEDATION. RIGHT WRIST SOFT RESTRAINT IN PLACE FOR EPISODES OF TRYING TO REACH TUBINGS. GOOD CIRCULATION AND NO NEW SKIN BREAKDOWN WHEN RELEASED AND CHECKED. TOLERATING NGT FEEDING AND VERIFIED PLACEMENT. NO RESIDUAL NOTED. F/C PATENT AND INTACT DRAINING TEA COLORED URINE TO GRAVITY. CONTROLLED A. FIB ON MACHINE JOINT CUTTER. AFEBRILE. BP WITHIN DESIRED LEVEL. SAFETY PRECAUTION NOTED. WILL CONTINUE TO MONITOR.
--- NOTE | 2016-06-02 21:00 | NUR ---
TUBE TURNER: AND SON AT BEDSIDE. MADE AWARE OF DR. MANRIQUE'S NEW ORDER OF CODE STATUS FROM FULL CODE TO DNR/DNI. VERIFIED WT CHARGE NURSE TEOFILO AND BOTH AGREED AND SAID THEY SPOKE WITH DR. MANRIQUE ABOUT IT AND WILL DECIDE IN THE AM FOR POSSIBLE EXTUBATION.
[2016-06-02] MEDS: ACETAMINOPHEN 325 MG TABLET PO SCH (21:45)
[2016-06-02] MEDS: ATORVASTATIN 40 MG TABLET PO SCH (21:46)
[2016-06-03] VITALS (18 sets, daily range): BP systolic 103–167; BP diastolic 59–105
[2016-06-03] MEDS: BLOOD SUGAR DIAGNOSTIC 1 EACH STRIP IN SCH ×2 (00:21→05:30)
--- NOTE | 2016-06-03 01:05 | NUR ---
TELEVISION CAMERA OPERATOR: DEEPLY SEDATED, SBP IN THE LOW 100, DECREASED DIPRIVAN RATE TO 15MCG/KG/MIN.
[2016-06-03] MEDS: PROPOFOL 100 ML IV PRN (05:04)
--- NOTE | 2016-06-03 06:40 | NUR ---
MULTIMEDIA MANAGER: PT HAD EPISODE OF RESTLESSNESS AND MORE AWAKE. INCREASED DIPRIVAN AT 20MCG/KG/MIN. RT. WRIST SOFT RESTRAINT KEPT IN PLACE TO KEEP FROM PULLING TUBES. ABLE TO TOLERATE NGT FEEDING WT NO RESIDUAL. SAFETY PRECAUTION NOTED.
[2016-06-03] MEDS: DOCUSATE SODIUM 100 MG CAPSULE PO SCH (09:00)
[2016-06-03] MEDS: PANTOPRAZOLE 40 MG VIAL IV SCH (09:07)
[2016-06-03] MEDS: ASPIRIN EC 325 MG TABLET.DR PO SCH (09:07)
[2016-06-03] MEDS: MORPHINE SULFATE INJ 2 MG/ML DISP.SYRIN IV PRN ×4 (10:59→17:41)
[2016-06-03] MEDS ORDERED: ACETAMINOPHEN 650 MG/SUPP.RECT RC PRN (11:00)
--- NOTE | 2016-06-03 11:02 | NUR ---
RT PT EXTUBATED PER ORDERS FOR COMFORT CARE. PT PLACED ON 3L NC. YUSUF PELLETIER AWARE. FAMILY AT BEDSIDE POST EXTUBATION. Addendum: 06/03/16 at 1104 by SELIN ANGUIANO RT Amended: Links added.
--- NOTE | 2016-06-03 14:14 | NUR ---
ONLINE RETAILER NOTE 0720: Received patient sedated on Diprivan. With ETT to vent, tolerated AC mode. With NGT intact, feeding tolerate well. No residuals noted. With MARTINEZ midline and LAC PIV intact. With right SW restraints on for episodes of right hand moving. Controlled Afib 90's on the monitor. With ferguson cath intact, noted with dark ras colored urine drained to BSD. 0930: S/E by Dr. Hardin, family at bedside, and discussed re: the plan of care. Son and agreed for comfort measures. 1045: Extubated patient as ordered. Placed on 2LPM of O2 via NC. Morphine given as ordered. Will continue to monitor. 1400: No any significant changes. 88% O2 sat on 2 LPM of O2. With right SW restraints for moving right hand and removing O2 supp unintentionally. Ferguson cath intact. Kept comfortable.
--- NOTE | 2016-06-03 15:25 | NUR ---
SALES RECRUITER NOTE Transferred patient via bed. AFib 110's, O2 sat 88% on 2LPM via NC, placed on mouth for patient mouth-breather. Midline intact. Wells intact, noted with 250mL dark ras colored urine. Called Parag, son and made aware re: the room transfer, verbalized understanding. Report given to Little PELLETIER for GONZALEZ.
--- NOTE | 2016-06-03 15:35 | NUR ---
MS RN NOTES RECEIVED PATIENT FROM ICU ON COMFORT MEASURES, DNR/DNI. WITH O2 @ 2LPM VIA NC NOTED TO BE PLACED ON MOUTH FOR PATIENT MOUTH - BREATHER. WITH MARTINEZ MIDLINE #18 INTACT AND PATENT, AND LAC # 18 PATENT AND INTACT. WITH RH SOFT WRIST RESTRAINT. YEN CATH INTACT AND NOTED WITH DARK ERASMO COLORED URINE. WILL CONTINUE TO MONITOR.
[2016-06-03] MEDS: LORAZEPAM INJ 2 MG/ML VIAL IVP PRN ×2 (17:19→23:56)
--- NOTE | 2016-06-03 18:00 | NUR ---
MS RN NOTES PATIENT NOTED WITH DISCOMFORT, PRN SUCTIONING DONE. SON AT BEDSIDE. MORPHONE AND ATIVAN GIVEN ORDERED. WILL CONTINUE TO MONITOR.
--- NOTE | 2016-06-03 18:31 | NUR ---
MS RN NOTES ENDORSED TO INCOMING SHIFT FOR CONTINUITY OF CARE.
--- NOTE | 2016-06-03 19:30 | NUR ---
MS RN NOTE: PATIENT RESTING IN BED, NO ACUTE DISTRESS NOTED. BREATHING LABORED, WITH OXYGEN VIA NC IN PLACE AT 3 LPM. HL OT LAC IN PLACE AND MIDLINE TO RIGHT UPPER ARM IN PLACE. YEN CATHETER IN PLACE, EMPTY AT THIS TIME. BED LOCKED AND IN LOWEST POSITION, CALL LIGHT IN REACH. WILL CONTINUE TO MONITOR.
--- NOTE | 2016-06-04 00:15 | NUR ---
RN NOTE: PATIENT WITH LABORED BREATHING, ATIVAN 1MG IV GIVEN PER MD ORDER. WILL CONTINUE TO MONITOR.
--- NOTE | 2016-06-04 06:30 | NUR ---
MS RN NOTE: PATIENT RESTING IN BED, NO ACUTE DISTRESS NOTED. BREATHING LABORED, WITH OXYGEN VIA NC IN PLACE AT 3 LPM. HL OT LAC IN PLACE AND MIDLINE TO RIGHT UPPER ARM IN PLACE. YEN CATHETER IN PLACE, DRAINED 300 ML OF CLEAR YELLOW URINE. BED LOCKED AND IN LOWEST POSITION, CALL LIGHT IN REACH. WILL ENDORSE TO DAY NURSE TO CONTINUE WITH PLAN OF CARE.
--- NOTE | 2016-06-04 07:30 | NUR ---
MS RN NOTES PATIENT RESTING IN BED WITH HOB ELEVATED, NO ACUTE DISTRESS NOTED. BREATHING LABORED, WITH OXYGEN VIA NC IN PLACE AT 3 LPM. WITH MARTINEZ ML AND LAC SL INTACT AND PATENT, YEN CATHETER IN PLACE, DRAINING TO CLEAR YELLOWISH URINE OUTPUT. BED LOCKED AND IN LOWEST POSITION, FOR SAFETY MEASURES. WILL CONTINUE TO MONITOR.
[2016-06-04 08:00] VITALS: BP 138/75
--- NOTE | 2016-06-04 08:30 | NUR ---
MS RN NOTES S/B DR. MANRIQUE WITH VERBAL ORDERS TO INFORM CASE MANAGEMENT TO DISCHARGE THE PATIENT AND ADMIT UNDER [facility].
[2016-06-04] MEDS: MORPHINE SULFATE INJ 2 MG/ML DISP.SYRIN IV PRN (08:46)
[2016-06-04] MEDS ORDERED: DOCUSATE SODIUM LIQ 100 MG/10 ML UDC NG SCH (09:00)
--- NOTE | 2016-06-04 11:13 | NUR ---
MS RN NOTES SHANI CHAIREZ NOTIFIED ABOUT THE HOSPICE REFERRAL.
--- NOTE | 2016-06-04 14:53 | NUR ---
MS PELLETIER NOTES S/B MANAGER CREATIVE SHRAVAN FROM [facility] [employer] AND SPOKE WITH THE PATIENT'S SON DICK. PATIENT WILL BE DISCHARGE AND WILL BE ADMITTED UNDER [facility]. Addendum: 06/04/16 at 1456 by MAUREEN CHEN RN ADDENDUM: PATIENT WILL BE ADMITTED UNDER [facility] C[facility].
[2016-06-04] MEDS: LORAZEPAM INJ 2 MG/ML VIAL IVP PRN (16:43)
== END 2016-06-04 17:20 | disposition hospice, inpatient (51) | DRG 64 ==
LOC: ER 20:43 → ICU 22:38 → TELE1 05-31 03:00 → TELE-TD 05-31 03:21 → ICU 05-31 09:48 → MEDSG2 06-03 15:18
PROVIDERS: ADMIT Internal Medicine; ATTEND Internal Medicine
PROC: 0BH17EZ Insertion of Endotracheal Airway into Trachea, Via Natural or Artificial Opening (ICD-10-PCS; principal; 2016-05-31)
PROC: 5A1945Z Respiratory Ventilation, 24-96 Consecutive Hours (ICD-10-PCS; 2016-05-31)
DX: I63.411 Cerebral infarction due to embolism of right middle cerebral artery (principal); G93.41 Metabolic encephalopathy; J96.00 Acute respiratory failure, unspecified whether with hypoxia or hypercapnia; D68.59 Other primary thrombophilia; G81.94 Hemiplegia, unspecified affecting left nondominant side; Z86.73 Personal history of transient ischemic attack (TIA), and cerebral infarction without residual deficits; E78.5 Hyperlipidemia, unspecified; I48.91 Unspecified atrial fibrillation; D72.829 Elevated white blood cell count, unspecified; F03.90 Unspecified dementia, unspecified severity, without behavioral disturbance, psychotic disturbance, mood disturbance, and anxiety; E87.6 Hypokalemia; R29.810 Facial weakness; I11.9 Hypertensive heart disease without heart failure; I65.21 Occlusion and stenosis of right carotid artery; Z51.5 Encounter for palliative care; D32.9 Benign neoplasm of meninges, unspecified; Z66 Do not resuscitate; R13.10 Dysphagia, unspecified
CPT/HCPCS: 31720; 36415; 36600; 70450-TC; 70498-TC; 70551-TC; 71010-TC; 80048-TC; 80061-TC; 80076-TC; 80305; 81000-TC; 82550-TC; 82553-TC; 82962-TC; 83735-TC; 83880; 84100-TC; 84443-TC; 84484-TC; 85025-TC; 85652-TC; 85730-TC; 86140-TC; 87081-TC; 87086-TC; 93307-TC; 93880-TC; 94002-TC; 94003-TC; 94760-TC; 94799-TC; A4217; A4606; A6402; A6403; C9113; J0282; J0330; J0360; J1200; J2060; J2270; J3480; J3490; J7030; J7050; J7060; Q9967; Z7610

== ENCOUNTER 2016-06-04 16:51 | Inpatient (IN) | payer OTHER ==
[~2016-06-04] VITALS: Ht 162.6 cm; Wt 74.4 kg
[2016-06-04 17:50] VITALS: BP 110/68
[2016-06-04] MEDS ORDERED: HYOSCYAMINE SULFATE 0.125 MG TAB.SUBL SL PRN (18:30)
[2016-06-04] MEDS ORDERED: BISACODYL SUPP (10 MG) 10 MG/SUPP.RECT SUPP.RECT RC PRN (19:00)
[2016-06-04 20:00] VITALS: BP 150/91
[2016-06-04] MEDS: MORPHINE SULFATE SOLN CONCENTRATED 20 MG/ML PO SCH (20:33)
[2016-06-05] MEDS: MORPHINE SULFATE SOLN CONCENTRATED 20 MG/ML PO SCH ×3 (03:22→20:24)
[2016-06-05 08:00] VITALS: BP 164/111
[2016-06-05] MEDS: LORAZEPAM INJ 2 MG/ML VIAL IM PRN ×2 (11:46→18:38)
[2016-06-05 16:00] VITALS: BP 174/106
[2016-06-05] MEDS: MORPHINE SULFATE SOLN CONCENTRATED 20 MG/ML PO PRN (18:05)
[2016-06-05 20:00] VITALS: BP 154/110
[2016-06-06] MEDS: MORPHINE SULFATE SOLN CONCENTRATED 20 MG/ML PO SCH ×3 (04:00→17:37)
[2016-06-06 08:00] VITALS: BP 135/69
[2016-06-06] MEDS: LORAZEPAM INJ 2 MG/ML VIAL IM PRN (08:09)
[2016-06-06] MEDS: MORPHINE SULFATE SOLN CONCENTRATED 20 MG/ML PO PRN (08:09)
[2016-06-06] MEDS ORDERED: LORAZEPAM INJ 2 MG/ML VIAL IV SCH (11:30)
[2016-06-06 16:00] VITALS: BP 102/51
[2016-06-06] MEDS: LORAZEPAM INJ 2 MG/ML VIAL IM SCH ×2 (17:37→23:30)
[2016-06-06] MEDS: ACETAMINOPHEN 650 MG/SUPP.RECT RC PRN (19:55)
[2016-06-06 20:00] VITALS: BP 74/39
[2016-06-07] MEDS: MORPHINE SULFATE SOLN CONCENTRATED 20 MG/ML PO SCH ×4 (00:12→18:14)
[2016-06-07] MEDS: LORAZEPAM INJ 2 MG/ML VIAL IM SCH ×3 (05:30→16:49)
[2016-06-07 08:00] VITALS: BP_SYST 115; BP_DIAS 55; BP_DIAS 61
[2016-06-07] MEDS: ACETAMINOPHEN 650 MG/SUPP.RECT RC PRN ×2 (09:04→16:47)
[2016-06-07 16:00] VITALS: BP 74/55
[2016-06-07 18:00] VITALS: BP 74/55
== END 2016-06-07 21:35 | disposition expired | DRG 45 ==
LOC: HOSPICE2 16:51
PROVIDERS: ADMIT Internal Medicine; ATTEND Family Medicine
DX: I63.519 Cerebral infarction due to unspecified occlusion or stenosis of unspecified middle cerebral artery (principal); J96.00 Acute respiratory failure, unspecified whether with hypoxia or hypercapnia; G93.41 Metabolic encephalopathy; R13.10 Dysphagia, unspecified; I48.91 Unspecified atrial fibrillation; D68.59 Other primary thrombophilia; Z51.5 Encounter for palliative care; I65.21 Occlusion and stenosis of right carotid artery; I10 Essential (primary) hypertension; Z86.73 Personal history of transient ischemic attack (TIA), and cerebral infarction without residual deficits; F03.90 Unspecified dementia, unspecified severity, without behavioral disturbance, psychotic disturbance, mood disturbance, and anxiety; E78.5 Hyperlipidemia, unspecified
CPT/HCPCS: J2060